=== PATIENT | female | born 1940 | race Caucasian/White ===

== ENCOUNTER → 2017-02-26 | Outpatient (CLI) | payer OTHER ==
[~2017-02-26] MED LIST: ACCUPRIL40 MG PO; ADULT LOW DOSE81 MG PO; ALIVE WOMEN'S1 EAC1 PO; ANTIVERT25 MG PO; BACTRIM DS TAB1 EACH PO; BIOTIN1000 MCG PO; BISOPROLOL FUM2.5 MG PO; BLACK COHOSH40 MG PO; CINNAMON500 MG PO; CITRACAL + D C1 EACH; CITRACAL PLUS1 EACH; CO Q-10100 MG PO; DEXILANT60 MG PO; ENABLEX15 MG; LIPITOR40 MG PO; LYRICA 50 MG50 MG PO; LYRICA100 MG PO; MOBIC15 MG PO; OCUVITE TABLET1 EAC1 PO; OMEGA-3 FISH O1 EAC3 PO; POTASSIUM99 M1 PO; PRAVACHOL20 MG PO; QUINAPRIL 20 MG20 MG PO; TRICOR145 MG PO; VICODIN ES 7.51 EACH PO; VIMOVO 375-201 EACH; VITAMIN D1000 UNI1 PO; ZIAC 5-6.25 MG1 EACH PO
== END ==
LOC: M.RAD 09:01
DX: Z12.31 Encounter for screening mammogram for malignant neoplasm of breast (principal)

== ENCOUNTER 2017-06-18 19:00 | Inpatient (IN) | payer OTHER ==
[~2017-06-18] VITALS: Ht 147.3 cm; Wt 52.6 kg
[~2017-06-18 19:00] MED LIST changes: -ACCUPRIL40 MG PO; -ALIVE WOMEN'S1 EAC1 PO; -ANTIVERT25 MG PO; -BACTRIM DS TAB1 EACH PO; -BIOTIN1000 MCG PO; -BISOPROLOL FUM2.5 MG PO; -BLACK COHOSH40 MG PO; -CINNAMON500 MG PO; -LYRICA 50 MG50 MG PO; -OCUVITE TABLET1 EAC1 PO; -PRAVACHOL20 MG PO; -VITAMIN D1000 UNI1 PO
[2017-06-18 19:10] VITALS: BP 188/45
[2017-06-18 20:01] LABS: HEMATOCRIT 43.1 % (37.0-47.0); HEMOGLOBIN 14.6 gm/dL (12.0-15.0); MCH 31.6 pg (26.0-34.0); MCHC 33.8 g/dL (28.0-37.0); MCV 93.6 fL (80.0-100.0); NUCLEATED RBCS 0 /100WBC; PLATELET COUNT* 134 thou/uL (150-400); RBC 4.61 mil/uL (4.20-5.00); RDW-CV 14.3 % (10.5-14.5); WBC 9.1 thou/uL (4.0-11.0)
[2017-06-18 20:09] LABS: ANION GAP 8 mmol/L (7-16); BUN 14 mg/dL (7-18); CALCIUM 10.1 mg/dL (8.5-10.1); CHLORIDE 109 mmol/L (98-107); CO2 29 mmol/L (21-32); CREATININE 0.8 mg/dL (0.6-1.3); GLUCOSE 127 mg/dL (70-99); SODIUM 146 mmol/L (136-145)
[2017-06-18 20:10] LABS: APTT 25.8 Seconds (25.0-31.3); INR 1.2; PROTIME 11.3 Seconds (9.20-11.50)
[2017-06-18 20:18] LABS: URINE BILIRUBIN NEGATIVE (Negative); URINE BLOOD TRACE (Negative); URINE CLARITY CLEAR; URINE COLOR YELLOW; URINE GLUCOSE-RANDOM NEGATIVE (Negative); URINE KETONES 1+ (Negative); URINE LEUKOCYTES-REFLEX TRACE (Negative); URINE NITRITE-REFLEX NEGATIVE (Negative); URINE PROTEIN 2+ (Negative); URINE SPECIFIC GRAVITY 1.015 (1.005-1.030); URINE UROBILINOGEN 0.2 E.U./dl (0.2-1.0)
[2017-06-18 20:20] LABS: ALBUMIN 3.5 g/dL (3.4-5.0); ALKALINE PHOSPHATASE 83 U/L (46-116); NT-PRO BRAIN NAT PEPTIDE 1015 pg/mL (<300); SGOT 48 U/L (15-37); SGPT 51 U/L (30-65); TOTAL BILIRUBIN 0.6 mg/dL (<0.1-1.0); TOTAL PROTEIN 6.9 g/dL (6.4-8.2); TROPONIN-I LEVEL <0.06 ng/mL (<0.06)
[2017-06-18 20:25] LABS: ABSOLUTE LYMPHOCYTES 1.1 thou/uL (0.8-5.3); ABSOLUTE MONOCYTES 0.4 thou/uL (0.0-1.2); ABSOLUTE NEUTROPHILS 7.6 thou/uL (1.6-8.1)
[2017-06-18 20:26] LABS: PLATELET ESTIMATE ADEQUATE
[2017-06-18 20:29] LABS: HYALINE CASTS 0-3 Few /LPF (None Seen); MUCUS 0-3 Light strn/LPF (None Seen); SQUAMOUS 4-10 Moderate /LPF (0-3)
[2017-06-18 20:30] LABS: BACTERIA-REFLEX 1-9 Few /HPF (None Seen); CRYSTALS None Seen /LPF (None Seen); URINE RBC 0-2 Rare /HPF (0-2); URINE WBC-REFLEX 0-5 Rare /HPF (0-5)
[2017-06-18 22:56] VITALS: BP 211/86
[2017-06-19 00:08] VITALS: BP 161/70
--- NOTE | 2017-06-19 01:17 | NUR ---
PATIENT ADMITTED TO THE FLOOR AROUND 2300 FOR VERTIGO, FALL AT HOME, AND ELEVATED SBP. 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 BSC SIT NEXT TO BED AND INSTRUCTED TO USE CALL LIGHT WHEN NEEDING TO GET UP. VERBALIZED UNDERSTANDING. HISTORY AND PHYSICAL COMPLETE. SR ON MONITOR. NO COMPLAINTS OF PAIN OR DISCOMFORT. NO SIGN OF DISTRESS. WILL CONT. WITH PLAN OF CARE.
[2017-06-19 04:00] VITALS: BP 171/61
--- NOTE | 2017-06-19 06:53 | NUR ---
PATIENT HAS ORDER FOR SPOT TB WHICH WAS DRAWN THIS AM. PLACED IN AIR BORN ISOLATION AND EDUCATED PATIENT ON WHY STAFF WILL BE WEARING MASK UNTIL RESULTS BACK.
[2017-06-19 07:45] VITALS: BP 168/65
[2017-06-19 08:00] VITALS: BP 168/65
[2017-06-19] MEDS ORDERED: ANTIVERT25 MG PO (09:19)
--- NOTE | 2017-06-19 15:08 | EKG ---
[place] [address] ELECTROCARDIOGRAM REPORT Name: ALIE SOTO Room: [address] ADM IN M.R.#: [id number] Admission: 06/18/17 Attend Phys: Vasile Canseco MD Discharge: Date of : 40 Report #: [id number] THIS REPORT FOR: //name// [facility] ED Test Date: 2017-06-18 Test Time: 19:12:23 Pat Name: ALIE SOTO Department: Room: [facility] Gender: F Location Analyst: : 1940 Requested By: Carmita Mahmood Order Number: [id number] MD: Darryl Wolff Measurements Intervals [place] Rate: 64 P: 37 CA: 175 QRS: 5 QRSD: 91 T: 0 QT: 450 QTc: 465 Interpretive Statements Sinus rhythm Consider left ventricular hypertrophy Baseline wander in lead(s) V3 No previous ECG available for comparison Electronically Signed On 06-19-2017 15:07:52 CDT by Darryl Wolff [email or web address] <ELECTRONICALLY SIGNED> By: Darryl Wolff MD, [facility] 06/19/17 1507 11 11 Darryl Wolff MD, FACC /EPI
[2017-06-19 15:44] VITALS: BP 163/58
--- NOTE | 2017-06-19 18:09 | NUR ---
PT UP IN ROOM WITH SB ASSIST. PT STATES SHE WILL LIKE TO GO HOME TOMORROW. PT STATES SHE WILL NOT GO TO [facility].PT REPORTS IMPROVEMENT OF DIZZINESS. PT CONTINUES TO HAVE ATAXIA WHICH SHE STATES IS HER BASELINE. A&OX4. TOLERATING PO WELL
[2017-06-19 20:00] VITALS: BP 184/67
[2017-06-20] VITALS: BP 173/69
--- NOTE | 2017-06-20 01:53 | NUR ---
PATIENT RESTING IN BED. UP AD BLAS. DENIES COMPLAINTS OF PAIN OR DISCOMFORT. NO SIGN OF DISTRESS. MED/SURG STATUS. GAIT HAS IMPROVED. WILL CONT. WITH PLAN OF CARE AT THIS TIME.
[2017-06-20 09:05] VITALS: BP 155/59
[2017-06-20 09:10] VITALS: BP 189/61
[2017-06-20 09:16] VITALS: BP 173/74
--- NOTE | 2017-06-20 09:56 | NUR ---
CM ASSESSMENT: Pt is A&O. Resides at home alone. Normally active and independent. No DME. No hx of HH or SNF. Pt discharging to home today with HH. Faxed dc orders to [facility]. Pt's cousin will provide dc transportation. No further needs.
[2017-06-20 10:12] VITALS: BP 173/74
--- NOTE | 2017-06-20 11:04 | NUR ---
Walker dispensed through [facility]
--- NOTE | 2017-06-20 13:53 | NUR ---
ASSUMED PT CARE AT 0730, FULL ASSESMENT DONE CHARTED. PT A/O X4, SOMEWHAT FORGETFUL AT TIMES. PT WANTS TO GO HOME, VSS, PT DENIES DIZZYNESS THIS AM. DR HENDERSON WROTE DC ORDERS. PT EDUCATED ON NEW SCRIPT AND GIVEN DISCHARGE INSTRUCTIONS. PT VERBALIZED UNDERSTANDING. PTS COUSIN PICKED PT UP AND PT LEFT UNIT WITH BELONGINGS AT APPROX 1145 TO HOME.
== END 2017-06-20 11:40 | disposition home or self-care (01) | DRG 149 ==
LOC: M.ERS 19:00 → M.TBA-ER 22:09 → M.2W 22:09
PROVIDERS: Personal Emergency Response Attendant; ADMIT Internal Medicine
DX: R42 Dizziness and giddiness (principal); I10 Essential (primary) hypertension; G89.29 Other chronic pain; R26.0 Ataxic gait; Z90.710 Acquired absence of both cervix and uterus; Z93.3 Colostomy status; Z79.82 Long term (current) use of aspirin; Z79.899 Other long term (current) drug therapy; Z88.0 Allergy status to penicillin; Z88.1 Allergy status to other antibiotic agents; Z88.8 Allergy status to other drugs, medicaments and biological substances

== ENCOUNTER 2017-09-10 18:23 | Emergency (ER) | payer OTHER ==
[~2017-09-10] VITALS: Ht 147.3 cm; Wt 53.5 kg
[~2017-09-10 18:23] MED LIST changes: +ANTIVERT25 MG PO
[2017-09-10] MEDS ORDERED: ACCUPRIL40 MG PO (18:37)
[2017-09-10] MEDS ORDERED: LYRICA 50 MG50 MG PO (18:37)
[2017-09-10] MEDS ORDERED: PRAVACHOL20 MG PO (18:38)
[2017-09-10] MEDS ORDERED: OCUVITE TABLET1 EAC1 PO (18:38)
[2017-09-10] MEDS ORDERED: VITAMIN D1000 UNI1 PO (18:38)
[2017-09-10] MEDS ORDERED: CO Q-10100 MG PO (18:39)
[2017-09-10] MEDS ORDERED: CINNAMON500 MG PO (18:40)
[2017-09-10] MEDS ORDERED: BISOPROLOL FUM2.5 MG PO (18:40)
[2017-09-10] MEDS ORDERED: ALIVE WOMEN'S1 EAC1 PO (18:41)
[2017-09-10] MEDS ORDERED: BLACK COHOSH40 MG PO (18:41)
[2017-09-10] MEDS ORDERED: BIOTIN1000 MCG PO (18:44)
[2017-09-10 18:45] LABS: URINE BILIRUBIN NEGATIVE (Negative); URINE BLOOD 2+ (Negative); URINE CLARITY CLEAR; URINE COLOR YELLOW; URINE GLUCOSE-RANDOM NEGATIVE (Negative); URINE KETONES NEGATIVE (Negative); URINE LEUKOCYTES-REFLEX 1+ (Negative); URINE PROTEIN NEGATIVE (Negative); URINE UROBILINOGEN 0.2 E.U./dl (0.2-1.0)
[2017-09-10 18:49] LABS: URINE NITRITE-REFLEX POSITIVE (Negative)
[2017-09-10 18:52] LABS: SQUAMOUS >10 Many /LPF (0-3)
[2017-09-10 18:53] LABS: CASTS None Seen /LPF (None Seen); CRYSTALS None Seen /LPF (None Seen)
[2017-09-10 19:13] LABS: ABSOLUTE BASOPHILS 0.1 thou/uL (0.0-0.2); ABSOLUTE EOSINOPHILS 0.6 thou/uL (0.0-0.7); ABSOLUTE NEUTROPHILS 5.2 thou/uL (1.6-8.1); EOSINOPHILS 6.3 %; HEMATOCRIT 41.3 % (37.0-47.0); LYMPHOCYTES 23.1 %; MCH 32.4 pg (26.0-34.0); MCHC 33.9 g/dL (28.0-37.0); MCV 95.6 fL (80.0-100.0); MONOCYTES 10.9 %; MPV 8.9 fl. (7.2-11.1); NUCLEATED RBCS 0 /100WBC; PLATELET COUNT* 168 thou/uL (150-400); POLYS 58.7 %; RBC 4.33 mil/uL (4.20-5.00); RDW-CV 13.2 % (10.5-14.5); WBC 8.8 thou/uL (4.0-11.0)
[2017-09-10 19:19] LABS: CALCIUM 10.8 mg/dL (8.5-10.1); CREATININE 1.3 mg/dL (0.6-1.3); POTASSIUM 4.1 mmol/L (3.5-5.1)
[2017-09-10 19:24] LABS: ALBUMIN 3.4 g/dL (3.4-5.0); TOTAL BILIRUBIN 0.4 mg/dL (<0.1-1.0); TOTAL PROTEIN 7.2 g/dL (6.4-8.2)
[2017-09-10] MEDS ORDERED: BACTRIM DS TAB1 EACH PO (19:43)
[2017-09-10 19:57] VITALS: BP 190/79
--- NOTE | 2017-09-11 12:46 | EKG ---
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1940 Requested By: Mateo Castorena Order Number: [id number] MD: Carlos Salazar Measurements Intervals [place] Rate: 65 P: 15 MS: 219 QRS: -11 QRSD: 92 T: 27 QT: 404 QTc: 421 Interpretive Statements Sinus rhythm Borderline prolonged MS interval Abnormal R-wave progression, late transition Left ventricular hypertrophy Compared to ECG 06/18/2017 19:12:23 No significant changes Electronically Signed On 09-11-2017 12:45:51 CDT by Carlos Salazar [email or web address] <ELECTRONICALLY SIGNED> By: Carlos Salazar MD, [facility] 09/11/17 1245 1846 1846 Carlos Salazar MD, [facility] /EPI
== END 2017-09-10 19:59 | disposition home or self-care (01) ==
LOC: M.ERS 18:23
PROVIDERS: Nurse Practitioner Family
DX: S09.90XA Unspecified injury of head, initial encounter (principal); N39.0 Urinary tract infection, site not specified; I10 Essential (primary) hypertension; Z90.710 Acquired absence of both cervix and uterus; Z88.0 Allergy status to penicillin; Z88.1 Allergy status to other antibiotic agents; Z88.8 Allergy status to other drugs, medicaments and biological substances; W19.XXXA Unspecified fall, initial encounter; Y93.89 Activity, other specified; Y92.89 Other specified places as the place of occurrence of the external cause; Y99.8 Other external cause status

== ENCOUNTER → 2018-02-28 | Outpatient (CLI) | payer OTHER ==
[~2018-02-28] MED LIST changes: +ACCUPRIL40 MG PO; +ALIVE WOMEN'S1 EAC1 PO; +BACTRIM DS TAB1 EACH PO; +BIOTIN1000 MCG PO; +BISOPROLOL FUM2.5 MG PO; +BLACK COHOSH40 MG PO; +CINNAMON500 MG PO; +LYRICA 50 MG50 MG PO; +OCUVITE TABLET1 EAC1 PO; +PRAVACHOL20 MG PO; +VITAMIN D1000 UNI1 PO
== END ==
LOC: M.RAD 09:59
DX: Z12.31 Encounter for screening mammogram for malignant neoplasm of breast (principal)

== ENCOUNTER 2018-07-07 10:01 | Emergency (ER) | payer OTHER ==
[~2018-07-07] VITALS: Ht 147.3 cm; Wt 54.4 kg
[2018-07-07 10:28] LABS: ABSOLUTE EOSINOPHILS 0.3 thou/uL (0.0-0.7); ABSOLUTE MONOCYTES 0.4 thou/uL (0.0-1.2); ABSOLUTE NEUTROPHILS 3.6 thou/uL (1.6-8.1); BASOPHILS 0.7 %; EOSINOPHILS 5.9 %; LYMPHOCYTES 17.8 %; MCH 31.3 pg (26.0-34.0); MCHC 34.2 g/dL (28.0-37.0); MCV 91.4 fL (80.0-100.0); MPV 8.7 fl. (7.2-11.1); NUCLEATED RBCS 0 /100WBC; PLATELET COUNT* 141 thou/uL (150-400); POLYS 67.6 %; RBC 4.16 mil/uL (4.20-5.00); RDW-CV 13.7 % (10.5-14.5); WBC 5.4 thou/uL (4.0-11.0)
[2018-07-07 10:45] LABS: CALCIUM 9.7 mg/dL (8.5-10.1); POTASSIUM 3.8 mmol/L (3.5-5.1)
[2018-07-07 10:49] LABS: ALBUMIN 3.4 g/dL (3.4-5.0); TOTAL BILIRUBIN 0.5 mg/dL (<0.1-1.0); TOTAL PROTEIN 6.8 g/dL (6.4-8.2)
[2018-07-07 11:00] LABS: URINE BILIRUBIN NEGATIVE (Negative); URINE BLOOD NEGATIVE (Negative); URINE CLARITY CLEAR; URINE COLOR YELLOW; URINE GLUCOSE-RANDOM NEGATIVE (Negative); URINE KETONES NEGATIVE (Negative); URINE LEUKOCYTES-REFLEX NEGATIVE (Negative); URINE NITRITE-REFLEX NEGATIVE (Negative); URINE PROTEIN NEGATIVE (Negative); URINE UROBILINOGEN 0.2 E.U./dl (0.2-1.0)
[2018-07-07] MEDS ORDERED: MIRALAX17 GM PO (11:53)
[2018-07-07 12:18] VITALS: BP 166/89
== END 2018-07-07 12:19 | disposition home or self-care (01) ==
LOC: M.ERS 10:01
PROVIDERS: Nurse Practitioner Family
DX: K59.00 Constipation, unspecified (principal); I10 Essential (primary) hypertension; Z88.1 Allergy status to other antibiotic agents; Z88.0 Allergy status to penicillin; Z90.710 Acquired absence of both cervix and uterus

== ENCOUNTER → 2019-08-26 | Outpatient (CLI) | payer OTHER ==
[~2019-08-26] MED LIST changes: +MIRALAX17 GM PO
== END ==
LOC: M.RAD 08:00
PROVIDERS: ATTEND Internal Medicine
DX: Z12.31 Encounter for screening mammogram for malignant neoplasm of breast (principal)

== ENCOUNTER → 2020-08-31 | Outpatient (CLI) | payer OTHER | LOC: M.RAD 09:04 | PROVIDERS: ATTEND Internal Medicine | DX: Z12.31 Encounter for screening mammogram for malignant neoplasm of breast (principal) ==